=== PATIENT | male | born 1990 | race Two or more races ===

== ENCOUNTER 2023-04-06 14:04 | Emergency (ER) | payer MEDICAID ==
[~2023-04-06] VITALS: Ht 165.1 cm; Wt 60.0 kg
[2023-04-06 14:10] VITALS: TEMP 97.6
[2023-04-06] MEDS ORDERED: HYDR30CR79 TP (18:31)
[2023-04-06] MEDS ORDERED: DOCU100C33 PO (18:31)
[2023-04-06 18:34] VITALS: BP 132/77; PULSE 62; RESP 16
== END 2023-04-06 18:50 | disposition home or self-care (01) ==
LOC: EMS 14:14
DX: K64.4 Residual hemorrhoidal skin tags (principal); F17.210 Nicotine dependence, cigarettes, uncomplicated
CPT/HCPCS: 99282; Z7502

== ENCOUNTER 2023-11-07 12:37 | Emergency (ER) | payer BC, MEDICAID ==
[~2023-11-07] VITALS: Ht 165.1 cm; Wt 68.2 kg
[~2023-11-07 12:37] MED LIST: DOCU100C33 PO; HYDR30CR79 TP
[2023-11-07 12:40] VITALS: BP 147/98; PULSE 67; RESP 16; TEMP 98.3
[2023-11-07] MEDS ORDERED: IBUP-1506 PO (14:18)
[2023-11-07] MEDS ORDERED: ERYT3.5O8 OD (14:18)
[2023-11-07] MEDS: ERYTHROMYCIN 0.5% 3.5 GM TUBE OPHTHALMIC OINTMENT OD ONE (14:18)
== END 2023-11-07 15:22 | disposition home or self-care (01) ==
LOC: EMS 12:38
DX: H10.9 Unspecified conjunctivitis (principal); M25.562 Pain in left knee; F17.210 Nicotine dependence, cigarettes, uncomplicated
CPT/HCPCS: 99283